=== PATIENT | female | born 1955 | race Caucasian/White ===

== ENCOUNTER → 2018-06-19 14:34 | Day surgery (SDC) | payer BC ==
[~2018-06-19 14:34] MED LIST: Acetaminophen TAB* 325 MG PO PRN; Buffered Lidocaine 1% SYRIN* 1 ML/SYRINGE INTRADERM ONE; Clindamycin 900 MG/D5W BAG(*) 900 MG/50 ML BAG IVPB ONE; Dexamethasone IV* 4 MG/ML 1 ML (4 MG) IV SLOW PU ONE; Dexamethasone IV* 4 MG/ML 1 ML (4 MG) ONE; Famotidine IV* 10 MG/ML 2 ML (20 mg) IV ONE; Famotidine IV* 10 MG/ML 2 ML (20 mg) ONE; Ibuprofen TAB* 600 MG PO PRN; Lactated Ringers 1000 ML Bag* 1,000 ML IV SCH; Lidocain 1% EPI 1:100,000 * 30 ML MDV ONE; Midazolam* 1 MG/ML 2 ML VIAL (2 MG) ONE; Naloxone* 0.4 MG/ML 1 ML VIAL IV PRN; Ondansetron INJ* 2 MG/ML VIAL IV PRN; Propofol* 10 MG/ML 20 ML BTL ONE; fentaNYL* 50 MCG/ML 2 ML VIAL (100 MCG VIAL) IV PRN; fentaNYL* 50 MCG/ML 2 ML VIAL (100 MCG VIAL) ONE; oxyCODONE/Acetamin 5/325 MG* TAB PO PRN
[2018-06-19 17:10] VITALS: BP 120/73
== END | disposition home or self-care (01) ==
LOC: OR 14:34
PROVIDERS: ATTEND Plastic Surgery
DX: L57.0 Actinic keratosis (principal); J45.909 Unspecified asthma, uncomplicated; Z88.0 Allergy status to penicillin
CPT/HCPCS: 88305; J1100; J2250; J2704; J3010

== ENCOUNTER 2019-03-16 16:28 | Emergency (ER) | payer BC ==
--- NOTE | 2019-03-16 16:46 | ED ---
HPI Chest Pain - HPI Summary HPI Summary: The pt is a 63 yr old female presenting to [facility] c/o chest pain that radiates to the back beginning 1 hour [employer]. She was playing the guitar when she began to have sharp abd pain that she thought was indigestion. The pain gradually turned into chest pain that radiated to her back. She has never experienced pain like this before and has a history of low ejection fraction. Her gate shear operator is Dr. Horan, and she wanted the pt to get an MRI for possible left sided heart damage. She rates her current pain severity an 8/10. No aggravating or alleviating factors noted. She also reports some pain when breathing but denies any nausea, vomiting, or dizziness. She has Hx of asthma. - History of Current Complaint Chief Complaint: EDChestPainROMI Time Seen by Provider: 03/16/19 16:40 Hx Obtained From: Patient Onset/Duration: Started Hours Ago, Still Present Timing: Constant, Lasting Hours Initial Severity: Severe Current Severity: Severe Pain Intensity: 8 Pain Scale Used: 0-10 Numeric Chest Pain Location: Mid Sternal Chest Pain Radiates: Yes Chest Pain Radiates To:: Back Character: Sharp/Stabbing Aggravating Factor(s): Nothing Alleviating Factor(s): Nothing Associated Signs and Symptoms: Positive: Chest Pain, Other: - pos - pain when breathing. Negative: Dizziness, Nausea, Vomiting - Allergy/Home Medications Allergies/Adverse Reactions: Allergies Allergy/AdvReac Type Severity Reaction Status Date / Time doxycycline Allergy VIOLENTLY Verified 06/19/18 14:57 ILL, "PASSED OUT" Penicillins Allergy Vomiting Verified 06/19/18 14:57 PMH/Surg Hx/FS Hx/Imm Hx Endocrine/Hematology History: Denies: Hx Diabetes Cardiovascular History: Denies: Hx Hypertension, Hx Pacemaker/ICD Respiratory History: Reports: Hx Asthma - ROUTINE AND PRN INHALER Sensory History: Reports: Hx Contacts or Glasses - GLASSES Denies: Hx Hearing Aid Opthamlomology History: Reports: Hx Contacts or Glasses - GLASSES Psychiatric History: Denies: Hx Panic Disorder - Surgical History Surgery Procedure, Year, and Place: TONSILS -1964- [facility] [place] Hx Anesthesia Reactions: No Infectious Disease History: No Infectious Disease History: Denies: Traveled Outside the [place] in Last 30 Days - Family History Known Family History: Negative: Renal Disease - Social History Alcohol Use: Rare Substance Use Type: Reports: None Smoking Status (MU): Former Smoker Amount Used/How Often: 1/2 PPD X 1 YEAR Have You Smoked in the Last Year: No Review of Systems Positive: Chest Pain Positive: Other - pos - pain when breathing Negative: Vomiting, Nausea Neurological: Other - neg - dizziness All Other Systems Reviewed And Are Negative: Yes Physical Exam - Summary Physical Exam Summary: VITAL SIGNS: Reviewed. GENERAL: Patient is a well-developed and nourished female who is lying comfortable in the stretcher. Patient is not in any acute respiratory distress. Pt is anxious. HEAD AND FACE: No signs of trauma. No ecchymosis, hematomas or skull depressions. No sinus tenderness. EYES: PERRLA, EOMI x 2, No injected conjunctiva, no nystagmus. EARS: Hearing grossly intact. Ear canals and tympanic membranes are within normal limits. MOUTH: Oropharynx within normal limits. NECK: Supple, trachea is midline, no adenopathy, no JVD, no carotid bruit, no c- spine tenderness, neck with full ROM. CHEST: Symmetric. Pt has reproducible chest pain. LUNGS: Clear to auscultation bilaterally. No wheezing or crackles. CVS: Regular rate and rhythm, S1 and S2 present, no murmurs or gallops appreciated. ABDOMEN: Soft, non-tender. No signs of distention. No rebound, no guarding, and no masses palpated. Bowel sounds are normal. EXTREMITIES: FROM in all major joints, no edema, no cyanosis or clubbing. NEURO: Alert and oriented x 3. No acute neurological deficits. Speech is normal and follows commands. SKIN: Dry and warm. Triage Information Reviewed: Yes Vital Signs On Initial Exam: Initial Vitals Temp Pulse Resp BP Pulse Ox 97.8 F 101 22 134/80 99 03/16/19 16:34 03/16/19 16:34 03/16/19 16:34 03/16/19 16:34 03/16/19 16:34 Vital Signs Reviewed: Yes Procedures - Sedation Patient Received Moderate/Deep Sedation with Procedure: No Diagnostics - Vital Signs Vital Signs Temp Pulse Resp BP Pulse Ox 03/16/19 16:34 97.8 F 101 22 134/80 99 - Laboratory Result Diagrams: 03/16/19 17:03 03/16/19 17:03 Lab Statement: Any lab studies that have been ordered have been reviewed, and results considered in the medical decision making process. - Radiology CXR Radiology Interpretation Completed By: Radiologist Summary of Radiographic Findings: IMPRESSION: FINDINGS CONSISTENT WITH COPD, NO EVIDENCE FOR ACUTE DISEASE. ED Physician has reviewed this report. - EKG 1630 Cardiac Rate: NL EKG Rhythm: Sinus Rhythm - 98 bpm Summary of EKG Findings: NSR @ 98 bpm. Multiple PVCs. No ST elevation. Normal axis. Re-Evaluation - Re-Evaluation First Eval Re-Evaluation Time: 17:11 Change: Improved Comment: Pt's CP has decreased to a 2/10 in severity. Most symptoms have resolved without any medication. Chest Pain Course/Dx - Course Assessment/Plan: Patient is a 63-year-old female who presents to the emergency department with a chief complaint of chest pain. Patient's past medical history is significant for asthma. EKG shows a sinus rhythm with multiple PVCs. Chest x-ray impression: Finding consistent with COPD. No evidence for acute disease. Initially I ordered aspirin and nitroglycerin. The patient reported the pain as 9 out of 10. However by the time the nurse was given nitroglycerin the pain is only 2-3 out of 10. Therefore we held a nitroglycerin. Blood test results without any significant abnormality except for creatinine of 1.18 and glucose of 107. The first troponin is 0.00. D- dimer is pending. At this point her BP signing the patient out to Dr. Wynn to follow-up the second troponin and d-dimer as well as the final disposition for the patient. At this time the patient is hemodynamically stable alert and oriented 3. - Diagnoses Provider Diagnoses: Chest pain Discharge ED - Sign-Out/Discharge Documenting (check all that apply): Sign-Out Patient Signing out patient TO: Sharon Wynn - Discharge Plan Referrals: Mary Ellen Grider MD [Primary Care Provider] - - Attestation Statements Document Initiated by Scribe: Yes Documenting Scribe: Kenneth Martin Provider For Whom Scribe is Documenting (Include Credential): Ponce Oliva MD Scribe Attestation: Kenneth Sheppard, scribed for Ponce Oliva MD on 03/16/19 at 1849.
[2019-03-16] MEDS ORDERED: Aspirin 81 mg CHEW TAB* 81 MG TAB.CHEW PO ONE (16:58)
[2019-03-16] MEDS ORDERED: Nitroglycerin TAB 0.4 MG* 0.4 MG TAB SL ONE (17:02)
[2019-03-16 17:13] LABS: ABS Basophils 0.1 10^3/ul (0-0.2); ABS Eosinophils 0.2 10^3/ul (0-0.6); ABS Lymphocytes 2.3 10^3/ul (1.0-4.8); ABS Monocytes 0.6 10^3/ul (0-0.8); ABS Neutrophils 3.2 10^3/ul (1.5-7.7); Eosinophil % 2.5 %; Hematocrit 42 % (35-47); Hemoglobin 14.4 g/dL (12.0-16.0); Lymphocyte % 36.7 %; Mean Corpuscular HGB Conc 35 g/dL (31-36); Mean Corpuscular Hemoglobin 32 pg (27-31); Mean Corpuscular Volume 93 fL (80-97); Mean Platelet Volume 9.7 fL (7.4-10.4); Platelet Count 200 10^3/uL (150-450); Red Blood Count 4.48 10^6 /uL (3.70-4.87); Red Cell Distribution Width 13 % (10-15); White Blood Count 6.3 10^3/uL (3.5-10.8)
--- OUTSIDE RECORDS SUMMARY | 2019-03-16 17:20 | XMS REPORT | Continuity of Care Document ---
:1955 External Reference #:[id number] Author Name Kim Horan M.D. (transmitted by agent of provider Missy Espinal) Address [address] [place] [address] Care Team Providers Name Role Phone Mary Ellen Hearn MD - Family Care Team Information Entrance Guard Medicine Problems Active Problems Provider Date Derangement Joint Unspecified Shoulder Region Juma Hawthorne M.D. Onset: 12/2014 Electrocardiogram abnormal Kim Horan M.D. Onset: 01/10/2019 FH: Myocardial infarct in 1st degree male Kim Horan M.D. Onset: 2018 relative <55 years Other cardiomyopathies Kim Horan M.D. Onset: 01/10/2019 Premature beats Kim Horan M.D. Onset: 01/10/2019 Social History Type Date Description Comments Sex Unknown Cigarette Use Quit at age 20 ETOH Use Rarely consumes alcohol Recreational Drug Use Never Used Drugs Tobacco Use Start: Unknown End: Patient is a former smoker Unknown Smoking Status Reviewed: 02/14/19 Patient is a former smoker Exercise Type/Frequency Exercises regularly Allergies, Adverse Reactions, Alerts Active Allergies Reaction Severity Comments Date Penicillin 09/04/2014 Medications Active Medications SIG Qnty Indications Ordering Provider Date Orthotics, Bilateral Plantar fasciitis, 728.71 Juma Hawthorne, 01/21/2015 bilateral feet M.D. Albuterol Inhaler as directed Unknown Multivitamin Adults once daily Unknown Tablets Fish Oil + D3 daily Unknown [id number] Capsules Calcium Magnesium 750 1 by mouth every Unknown day 300-300mg Tablets Medications Administered in Office Medication SIG Qnty Indications Ordering Provider Date Technetium TC 99M Erick Casarez, DO FAC 01/22/2019 Tetrofosmin, Per Unit Dose Up To 40 Millicuries Injection Technetium TC 99M Erick BlackKrissy Casarez, DO [facility] 01/22/2019 Tetrofosmin, Per Unit Dose Up To 40 Millicuries Injection Immunizations Description No Information Available Vital Signs Date Vital Result Comment 02/14/2019 3:34pm Height 64 inches 5'4" Weight 128.00 lb with shoes Heart Rate 70 /min BP Systolic Sitting 112 mmHg Lue reg cuff BP Diastolic Sitting 70 mmHg Lue reg cuff BP Systolic Standing 110 mmHg Lue reg cuff BP Diastolic Standing 70 mmHg Lue reg cuff Respiratory Rate 16 /min BMI (Body Mass Index) 22.0 kg/m2 01/10/2019 1:28pm Height 64 inches 5'4" Weight 125.00 lb Heart Rate 80 /min BP Systolic Sitting 108 mmHg Lue reg cuff sitting BP Diastolic Sitting 82 mmHg Lue reg cuff sitting BP Systolic Standing 108 mmHg Lue reg cuff standing BP Diastolic Standing 78 mmHg Lue reg cuff standing BP Systolic Lying Down 108 mmHg Rue reg cuff sitting BP Diastolic Lying Down 62 mmHg Rue reg cuff sitting Respiratory Rate 13 /min BMI (Body Mass Index) 21.5 kg/m2 Ejection Fraction 45-50% ECHO 11/28/2018 Results Test Date Facility Test Result H/L Range Note Laboratory test [facility] Immunoglobulin E 42.3 kU/L <= 214 [address] [place] [address] [phone] CBC Auto Diff [facility] White Blood Count 4.4 Normal 3.5-10.[address] 10^3/[place] [address] [phone] Red Blood Count 4.30 10^6/uL Normal 3.70-4.87 Hemoglobin 13.7 g/dL Normal 12.0-16.0 Hematocrit 41 % Normal 35-47 Mean Corpuscular Volume 94 fL Normal 80-97 Mean Corpuscular Hemoglobin 32 pg High 27-31 Mean Corpuscular HGB Conc 34 g/dL Normal 31-36 Red Cell Distribution Width 13 % Normal 10-15 Platelet Count 214 10^3/uL Normal 150-450 Mean Platelet Volume 9.7 fL Normal 7.4-10.4 Abs Neutrophils 2.4 10^3/uL Normal 1.5-7.7 Abs Lymphocytes 1.3 10^3/uL Normal 1.0-4.8 Abs Monocytes 0.4 10^3/uL Normal 0-0.8 Abs Eosinophils 0.2 10^3/uL Normal 0-0.6 Abs Basophils 0.1 10^3/uL Normal 0-0.2 Abs Nucleated RBC 0.0 10^3/uL Granulocyte % 55.9 % Lymphocyte % 29.5 % Monocyte % 9.4 % Eosinophil % 3.8 % Basophil % 1.4 % Nucleated Red Blood Cells % 0.0 Comp Metabolic 12/12/2018 [facility] Sodium 143 mmol/L Normal 135-[address] [place] [address] [phone] Potassium 4.1 mmol/L Normal 3.5-5.0 Chloride 109 mmol/L Normal 101-111 Co2 Carbon Dioxide 28 mmol/L Normal 22-32 Anion Gap 6 mmol/L Normal 2-11 Glucose 68 mg/dL Low 70-100 Blood Urea Nitrogen 19 mg/dL Normal 6-24 Creatinine 0.91 mg/dL Normal 0.51-0.95 BUN/Creatinine Ratio 20.9 High 8-20 Calcium 9.2 mg/dL Normal 8.6-10.3 Total Protein 6.0 g/dL Low 6.4-8.9 Albumin 4.1 g/dL Normal 3.2-5.2 Globulin 1.9 g/dL Low 2-4 Albumin/Globulin Ratio 2.2 Normal 1-3 Total Bilirubin 0.50 mg/dL Normal 0.2-1.0 Alkaline Phosphatase 63 U/L Normal 34-104 Alt 16 U/L Normal 7-52 Ast 21 U/L Normal 13-39 Egfr Non- 62.6 >60 Egfr 75.8 >60 2 Lipid Profile 12/12/2018 [facility] Triglycerides 104 mg/dL 3 (Trig/Chol/HDL) [address] [place] [address] [phone] Cholesterol 261 mg/dL 4 HDL Cholesterol 63.0 mg/dL 5 LDL Cholesterol 177 mg/dL 6 Laboratory 12/12/2018 [facility] TSH (Thyroid 2.58 Normal 0.34 -5.60 [address] Stim Horm) mcIU/[place] [address] [phone] Free T4 (Free Thyroxine) 0.88 ng/dL Normal 0.61-1.12 8 T3 Total 124 ng/dL Normal 87-178 9 Vitamin B12 1034 pg/mL High 180-914 10 Vitamin D Total 25(Oh) 46.5 ng/mL Normal 20-50 11 Lyme Screen W/ Reflex To WB Negative Negative 12 1 Test Performed by: [facility] [address] [place] [address] 2 Because ethnic data is not always readily available, this report includes an eGFR for both -Americans and non- Americans. The National Kidney Disease Education Program (NKDEP) does not endorse the use of the MDRD equation for patients that are not between the ages of 18 and 70, are , have extremes of body size, muscle mass, or nutritional status, or are non- or non-. According to the National Kidney Foundation, irrespective of diagnosis, the stage of the disease is based on the level of kidney function: Stage Description GFR(mL/min/1.73 m(2)) 1 Kidney damage with normal or decreased GFR 90 2 Kidney damage with mild decrease in GFR 60-89 3 Moderate decrease in GFR 30-59 4 Severe decrease in GFR 15-29 5 Kidney failure <15 (or dialysis) 3 Desirable: <150 Borderline High: 150-199 High: 200-499 Very High: >500 4 Desirable: <200 Borderline High: 200-239 High: >239 5 Low: <40 Desirable: 40-60 High: >60 6 Desirable: <100 Near Optimal: 100-129 Borderline High: 130-159 High: 160-189 Very High: >189 7 FASTING 10 HOUR 8 FASTING 10 HOUR 9 FASTING 10 HOUR 10 Normal Range 180 to 914 Indeterminate Range 145 to 180 Deficient Range <145 11 Total 25-Hydroxyvitamin D2 and D3 (25-OH-VitD) <10 ng/mL (severe deficiency) 10-19 ng/mL (mild to moderate deficiency) 20-50 ng/mL (optimum levels) 51-80 ng/mL (increased risk of hypercalciuria) >80 ng/mL (toxicity possible) 12 FASTING 10 HOUR Procedures Date Code Description Status 01/22/2019 32892 Stress Test Completed 01/22/2019 79697 Myocardial Perfusion Imaging Tomographic (Spect) Multiple Completed Studies 01/10/2019 11941 EKG Tracing & Interpretation Completed 01/03/2019 69826 Diffusing Capacity Completed 01/03/2019 01583 Plethysmography Determination Lung Volumes & Per Airway Completed Resist 01/03/2019 52009 Pulmonary Function><Bronchodil Completed 12/26/2018 97237 Inject/Drain Joint/Bursa Major W/O US Completed 12/25/2018 78778 Holter Monitor Review (24 hr)dr review & interp only Completed 12/24/2018 05692 ECG Monitor/Recording W/Visual Superimposition Scanning Completed 11/28/2018 90938 ECHO Transthorasic Realtime 2D W Doppler & Color Flow Hosp Completed Medical Devices Description No Information Available Encounters Type Date Location Provider Dx Diagnosis Office Visit 01/10/2019 [facility] Kim Horan, I49.3 Ventricular premature 2:10p Of [facility] Gifty depolarization I42.8 Other cardiomyopathies J45.909 Unspecified asthma, uncomplicated Z82.49 Family hx of ischem heart dis and oth dis of the circ sys R94.31 Abnormal electrocardiogram [ECG] [EKG] Office Visit 12/26/2018 8:30a [facility] Ruben Cheng, M70.41 Prepatellar at [facility] bursitis, right knee Office Visit 12/05/2018 9:15a [facility] J45.998 Other asthma [facility] Assessments Date Code Description Provider 02/14/2019 I49.3 Ventricular premature depolarization Kim Horan M.D. 02/14/2019 R00.2 Palpitations Kim Horan M.D. 02/14/2019 J45.909 Unspecified asthma, uncomplicated Kim Horan M.D. 02/14/2019 I42.9 Cardiomyopathy, unspecified Kim Horan M.D. 01/22/2019 R94.31 Abnormal electrocardiogram [ECG] [EKG] Kim Horan M.D. 01/22/2019 R94.31 Abnormal electrocardiogram [ECG] [EKG] Erick Casarez, DO FAC 01/10/2019 I49.3 Ventricular premature depolarization Kim Horan M.D. 01/10/2019 I42.8 Other cardiomyopathies Kim Horan M.D. 01/10/2019 J45.909 Unspecified asthma, uncomplicated Kim Horan M.D. 01/10/2019 Z82.49 Family history of ischemic heart disease Kim Horan M.D. and other diseases of the circulatory system 01/10/2019 R94.31 Abnormal electrocardiogram [ECG] [EKG] Kim Horan M.D. 01/03/2019 J45.998 Other asthma Kristen Harris MD 12/26/2018 M70.41 Prepatellar bursitis, right knee Ruben Cheng M.D. 12/25/2018 R00.2 Palpitations Erick Casarez, DO [facility] 12/25/2018 I49.3 Ventricular premature depolarization Erick Casarez, DO [facility] 12/25/2018 I49.1 Atrial premature depolarization Erick Casarez, DO [facility] 12/24/2018 R00.2 Palpitations Nurse Visit IC 12/24/2018 I49.3 Ventricular premature depolarization Nurse Visit IC 12/24/2018 I49.1 Atrial premature depolarization Nurse Visit IC 12/05/2018 J45.998 Other asthma Vishnu Hartley MD 11/28/2018 R94.31 Abnormal electrocardiogram [ECG] [EKG] Kim Horan M.D. Plan of Treatment 02/14/2019 - Kim Horan M.D.I49.3 Ventricular premature depolarizationComments:More at rest than exercise.10% of total beats are PVC' s.Follow up:OV after echo, with ECG.Recommendations:Medication could diminish. Atenolol, diltiazem or digoxin.R00.2 PkllsrapwajbQ74.909 Unspecified asthma, uncomplicatedComments:On Xopenex now, rarely albuterol.I42.9 Cardiomyopathy, unspecifiedNew Orders:Echocardiogram, Ordered: 02/14/19Comments:Option of checking an MRI to look for scarring, reasons for weakening of the heart.Recommendations:Repeat echo May or later 2019, see if improved/ normalized. Functional Status Description No Information Available Mental Status Description No Information Available Referrals Description No Information Available
[2019-03-16 17:31] LABS: Albumin 4.5 g/dL (3.2-5.2); Albumin/Globulin Ratio 1.7 (1-3); BUN/Creatinine Ratio 18.6 (8-20); Calcium 9.8 mg/dL (8.6-10.3); EGFR African American 56.2 (>60); EGFR Non-African American 46.4 (>60); Globulin 2.6 g/dL (2-4); Magnesium 2.2 mg/dL (1.9-2.7); Total Bilirubin 0.3 mg/dL (0.2-1.0); Total Protein 7.1 g/dL (6.4-8.9)
[2019-03-16 17:37] LABS: CKMB ng/mL 3.4 ng/mL (0.6-6.3)
[2019-03-16 18:07] LABS: TSH (Thyroid Stimulating Horm) 3.45 mcIU/mL (0.34-5.60)
[2019-03-16 19:00] LABS: Urine Appearance Clear; Urine Bilirubin Negative (Negative); Urine Blood Negative (Negative); Urine Color Straw; Urine Glucose Negative (Negative); Urine Ketones Negative (Negative); Urine Nitrite Negative (Negative); Urine Protein Negative (Negative); Urine Specific Gravity 1.005 (1.010-1.030); Urine Urobilinogen Negative (Negative)
--- NOTE | 2019-03-16 19:51 | ED ---
Progress - Progress Note Progress Note: Receiving sign-out from Dr. Oliva pending 2nd troponin and D-dimer at 1900. 2nd Troponin and D-dimer were unremarkable. A plan for discharge was discussed with the patient and she was agreeable with this plan. Re-Evaluation - Re-Evaluation First Eval Re-Evaluation Time: 17:11 Course/Dx - Course Course Of Treatment: Receiving sign-out from Dr. Oliva pending 2nd troponin and D-dimer at 1900. 2nd Troponin and D-dimer were unremarkable. A plan for discharge was discussed with the patient and she was agreeable with this plan. - Diagnoses Provider Diagnoses: Chest pain Discharge ED - Sign-Out/Discharge Documenting (check all that apply): Patient Departure - Discharge - Discharge Plan Condition: Stable Disposition: HOME Patient Education Materials: Chest Pain (ED) Referrals: Mary Ellen Grider MD [Primary Care Provider] - Additional Instructions: Return to ED with new or worsening symptoms. - Attestation Statements Document Initiated by Scribe: Yes Documenting Scribe: Maximus Terry Provider For Whom Scribe is Documenting (Include Credential): Sharon Wynn MD Scribe Attestation: Maximus Sheppard, scribed for Sharon Wynn MD on 03/16/19 at 1955. Status of Scribe Document: Ready
[2019-03-16 20:15] VITALS: BP 116/65
== END 2019-03-16 20:14 | disposition home or self-care (01) ==
LOC: ED 16:28
DX: R07.9 Chest pain, unspecified (principal); Z88.1 Allergy status to other antibiotic agents; Z88.0 Allergy status to penicillin; Z87.891 Personal history of nicotine dependence
CPT/HCPCS: 36415; 71045; 80053; 81003; 82553; 83605; 83735; 83880; 84443; 84484; 85025; 85379; 93005; 99283; A9270-GY